=== PATIENT | female | born 1985 | race Two or more races ===

== ENCOUNTER 2017-05-15 03:26 | Observation (INO) | payer MEDICAID ==
[~2017-05-15] VITALS: Ht 154.9 cm; Wt 88.0 kg
[2017-05-15] MEDS ORDERED: LACTATED RINGER'S 1,000 ML IV ONE (04:03)
[2017-05-15] MEDS ORDERED: TERBUTALINE SULFATE 1 MG/ML 1ML VIAL SC SCH (04:15)
[2017-05-15] MEDS ORDERED: TERBUTALINE SULFATE 1 MG/ML 1ML VIAL SC ONE (04:31)
[2017-05-15] MEDS ORDERED: FERR-7 PO (04:56)
[2017-05-15] MEDS ORDERED: FOLI1TAB6 PO (04:56)
[2017-05-15] MEDS ORDERED: FEXO24TA9 PO (04:56)
[2017-05-15] MEDS ORDERED: PREN-96 PO (04:56)
[2017-05-15 05:51] LABS: Alcohol, Urine < 3.0 mg/dL (0-5); Amphetamine Screen, Urine NEGATIVE (NEGATIVE); Barbiturate Scree,Urine NEGATIVE (NEGATIVE); Benzodiazephine Screen, Urine NEGATIVE (NEGATIVE); Cannabinoid Screen, Urine NEGATIVE (NEGATIVE); Cocaine Screen, Urine NEGATIVE (NEGATIVE); Opiate Scree,Urine NEGATIVE (NEGATIVE); Phencyclidine Screen, Urine NEGATIVE (NEGATIVE)
== END 2017-05-15 07:45 | disposition home or self-care (01) | DRG 566 ==
LOC: LDRP 03:26
PROVIDERS: ADMIT Obstetrics & Gynecology; ATTEND Obstetrics & Gynecology
DX: O26.893 Other specified pregnancy related conditions, third trimester (principal); E86.0 Dehydration; Z3A.30 30 weeks gestation of pregnancy; R10.9 Unspecified abdominal pain
CPT/HCPCS: 80307; 96360; 96361; 96372; G0378; J3105; 59025; 81002; 96365; 96366

== ENCOUNTER 2020-06-29 17:18 | Emergency (ER) | payer MEDICAID ==
[~2020-06-29] VITALS: Ht 154.9 cm; Wt 86.2 kg
[~2020-06-29 17:18] MED LIST: FERR-7 PO; FEXO24TA10 PO; FOLI1TAB6 PO; PREN-96 PO
[2020-06-29 17:19] VITALS: BP 129/68
[2020-06-29] MEDS ORDERED: SODIUM CHLORIDE 0.9% 1,000 ML IV ONE ×2 (18:45→21:30)
[2020-06-29] MEDS ORDERED: KETOROLAC TROMETH 30 MG/ML 1ML VIAL IV ONE (18:45)
== END 2020-06-29 23:24 | disposition home or self-care (01) ==
LOC: ER 17:18
DX: G43.909 Migraine, unspecified, not intractable, without status migrainosus (principal); J45.909 Unspecified asthma, uncomplicated; W52.XXXA Crushed, pushed or stepped on by crowd or human stampede, initial encounter; Y93.89 Activity, other specified; Y92.89 Other specified places as the place of occurrence of the external cause; Y99.8 Other external cause status
CPT/HCPCS: 96361; 96374; 99283; J1885; J7030

== ENCOUNTER 2020-07-01 18:57 | Emergency (ER) | payer MEDICAID ==
[~2020-07-01] VITALS: Ht 165.1 cm; Wt 79.4 kg
[2020-07-01] MEDS ORDERED: ACETAMINOPHEN 325 MG TAB PO ONE (19:45)
[2020-07-01] MEDS ORDERED: METOCLOPRAMIDE HCL 5MG/ml INJ 2ml VIAL IV ONE (19:45)
[2020-07-01] MEDS ORDERED: SODIUM CHLORIDE 0.9% 1,000 ML IV ONE (19:45)
[2020-07-01] MEDS ORDERED: KETOROLAC TROMETH 30 MG/ML 1ML VIAL IV ONE (19:45)
[2020-07-01 20:18] LABS: Basophils # (auto) 0.1 10 ^3/uL (0-0.2); Eosinophils # (auto) 0.6 10 ^3/uL (0-0.8); Lymphocytes # (auto) 2.3 10 ^3/uL (0.4-5.4); Neutrophils # (auto) 7.1 10 ^3/uL (1.6-8.6); Red Cell Distribution Width 16.8 % (11.8-14.3)
[2020-07-01 20:20] LABS: Basophils % (auto) 0.9 % (0.0-2.0); Eosinophils % (auto) 5.8 % (0.0-7.0); Hematocrit 32.8 % (36.0-46.0); Hemoglobin 10.5 g/dL (12.2-16.2); Lymphocytes % (auto) 21.9 % (10.0-50.0); Mean Corpuscular Hemoglobin 24.4 pg (28.0-32.0); Mean Corpuscular Volume 76.4 fL (80.0-100.0); Monocytes # (auto) 0.5 10 ^3/uL (0-1.3); Monocytes % (auto) 4.5 % (0.0-12.0); Neutrophils % (auto) 66.9 % (37.0-80.0); Platelet Count (auto) 338 10^3/uL (140-450); White Blood Cell 10.6 10^3/uL (4.4-10.8)
[2020-07-01 20:39] LABS: Potassium 4.2 mmol/L (3.5-5.1)
[2020-07-01 20:46] LABS: Albumin 3.7 g/dL (3.4-5.0); BUN/Creatinine Ratio 16.3; Bilirubin, Total 0.3 mg/dL (0.2-1.0); Magnesium 2.6 mg/dL (1.6-2.6); Total Protein 7.8 g/dL (6.4-8.2)
[2020-07-01 23:09] LABS: Urine Bacteria FEW /hpf (None Seen); Urine Blood Negative /uL (Negative); Urine Specific Gravity 1.008 (1.001-1.035); Urine WBC 1 /hpf (0 - 5)
[2020-07-02] VITALS: BP 103/52
== END 2020-07-02 01:25 | disposition home or self-care (01) ==
LOC: EDBD 18:57 → ER 18:57
DX: G44.309 Post-traumatic headache, unspecified, not intractable (principal); R11.2 Nausea with vomiting, unspecified
CPT/HCPCS: 36415; 70450; 72125; 80053; 81001; 83735; 85025; 93005; 96361; 96374; 96375; 99285; J1885; J2765; J7030